=== PATIENT | female | born 1970 | race Caucasian/White ===

== ENCOUNTER 2017-01-18 18:27 | Emergency (ER) | payer BC ==
[2017-01-18] MEDS ORDERED: Butalb/Acetamin/Caff TAB* 1 TAB PO ONE (20:52)
[2017-01-18 21:25] VITALS: BP 121/82
--- NOTE | 2017-01-18 22:12 | ED ---
Xavier Delgadillo Benjamin, scribed for Kinjal Cuenca MD on 01/18/17 at 2006 . GI/ HPI - HPI Summary HPI Summary: 46yo female comes to ED after noticing dark brown blood while using the bathroom this morning. No foul smell was noted. Pt also noted some lump in her external labia. Pt also reported pain in her vaginal area. However, no pain now. Pt had bleeding all throughout the day but pt was able to control her bleeding with just her underwear without needing any extra pads. Pt had full hysterectomy done [address] Del Rela is her PCP, and her Herd Tester retired and she currently does not have a It Systems Manager Doctor. Denies any CP or fever. Pt has chronic migraine. Also Hx of laparoscopy and LEEP.Fhx of Brain tumor, Uterine, ovarian, breast, endometrium, kidney, and lung Alan. Med list: Topamax, Fioricet, Pantoprazole, Meloxicam. Allergic to: Zomig, Imitrex - History of Current Complaint Chief Complaint: EDVaginalBleeding Stated Complaint: VAGINAL BLEEDING Hx Obtained From: Patient, Family/Puppet Master - Onset/Duration: Started Hours Ago - this morning, Atraumatic, Still Present Timing: Constant Severity: Mild Current Severity: Mild Vaginal Bleeding Description: Brownish-Red, Brown Number of Pads per Day: 0 Number of Pads per Hour: 0 Pain Intensity: 0 Location of Pain: Other - labia, vaginal Pain Characteristics: Dull Associated Signs and Symptoms: Negative: Back Pain, Nausea, Vomiting, Fever, Chest Pain Additional Signs & Symptoms: Positive: Vaginal Bleeding - dark, Other: - "cyst" on labia Aggravating Factor(s): Nothing Alleviating Factor(s): Nothing - Allergy/Home Medications Allergies/Adverse Reactions: Allergies Allergy/AdvReac Type Severity Reaction Status Date / Time Sumatriptan [From Imitrex] Allergy Swelling Verified 01/18/17 18:35 Of Face,Lips,& Throat Zolmitriptan [From Zomig] Allergy Swelling Verified 01/18/17 18:36 Of Face,Lips,& Throat PMH/Surg Hx/FS Hx/Imm Hx Previously Healthy: No History: Reports: Other Problems/Disorders - Hysterectomy in her 30's for fibroids Neurological History: Reports: Hx Migraine - Surgical History Surgery Procedure, Year, and Place: total hysterectomy in her 30's Infectious Disease History: No Infectious Disease History: Denies: Traveled Outside the [place] in Last 30 Days - Family History Known Family History: Positive: Other - Brain tumor, Uterine, ovarian, breast, endometrium, kidney, and lungs - Social History Occupation: Employed Full-time Lives: With Family Alcohol Use: None Substance Use Type: Reports: None Smoking Status (MU): Never Smoked Tobacco Review of Systems Constitutional: Negative Negative: Fever Eyes: Negative ENT: Negative Negative: Chest Pain Respiratory: Negative Negative: Diarrhea, Nausea Positive: other - dark brown vaginal bleeding Musculoskeletal: Negative Skin: Negative Neurological: Negative Psychological: Normal All Other Systems Reviewed And Are Negative: Yes Physical Exam Triage Information Reviewed: Yes Vital Signs On Initial Exam: Initial Vitals Temp Pulse Resp BP Pulse Ox 97.6 F 76 16 154/95 98 01/18/17 18:31 01/18/17 18:31 01/18/17 18:31 01/18/17 18:31 01/18/17 18:31 Vital Signs Reviewed: Yes Appearance: Positive: Well-Appearing, Well-Nourished, Pain Distress - mild. Negative: No Pain Distress Skin: Positive: Warm, Skin Color Reflects Adequate Perfusion Head/Face: Positive: Normal Head/Face Inspection Eyes: Positive: Conjunctiva Clear ENT: Positive: Normal ENT inspection Neck: Positive: Supple Respiratory/Lung Sounds: Positive: Clear to Auscultation, Breath Sounds Present Cardiovascular: Positive: RRR, Pulses are Symmetrical in both Upper and Lower Extremities Abdomen Description: Positive: Nontender, No Organomegaly, Soft, Other: - Pelvic exam: right proximal labia with 1cm x 0.5cm purplish lesion. No "head" on the lesion, no drainage site noted. No bleeding or pus from the lesion even with external pressure. Lesion is higher than a classic Bartholin's cyst. Lesion is not painful when I touch it. No vaginal bleeding. Speculum exam shows not blood in vaginal, small amount white discharge sent for culture. Surgically absent cervix. Vaginal mucosa shows no sign of trauma, is pink and moist. No other lesions noted on vulvae. No blisters. No masses. Bowel Sounds: Positive: Present Musculoskeletal: Positive: Strength/ROM Intact. Negative: Edema Left, Edema Right Neurological: Positive: Sensory/Motor Intact, Alert, Oriented to Person Place, Time Psychiatric: Positive: Affect/Mood Appropriate Diagnostics - Vital Signs Vital Signs Temp Pulse Resp BP Pulse Ox 01/18/17 18:31 97.6 F 76 16 154/95 98 - Laboratory Lab Statement: Any lab studies that have been ordered have been reviewed, and results considered in the medical decision making process. Re-Evaluation - Re-Evaluation First Eval Re-Evaluation Time: 20:51 Comment: Informed pt with the diagnosis and the discharge plans. Pt reports migraine like LEON in 8/10 pain scale. Will give pt pain meds before discharge. GIGU Course/Dx - Course Course Of Treatment: Reviewed pts medication and allergy lists. High Blood pressure noted. - Diagnoses Differential Diagnoses - Female: Bartholin Cyst, Cancer, Herpes, STD, Vaginitis Provider Diagnoses: Labial lesion Discharge - Discharge Plan Condition: Stable Disposition: HOME Patient Education Materials: Vaginal Discharge (ED) Referrals: Ousmane Obrien MD [Medical Doctor] - As Soon As Possible (for follow up of bleeding labial lesion ) Yuridia Del Real DO [Primary Care Provider] - Additional Instructions: We have provided instructions about vaginal discharge tonight, although we realize that the bleeding/dark discharge that you had today was from your labia. We have sent cultures to test for infection. We will notify you if you need further treatment based on those results. The spot that was bleeding had decreased in size and there was no blood or pus from the spot when Dr. Cuenca pushed on it. Dr. Cuenca recommends definite follow up with [facility], as soon as possible. Return to the ED if you have any new or worsening symptoms. The documentation as recorded by the Xavier kaiser Benjamin accurately reflects the service I personally performed and the decisions made by , Kinjal Cuenca MD.
[2017-01-19 12:38] LABS: Trichomonas Source Endocervical (Negative)
--- NOTE | 2017-01-21 09:59 | PN ---
Progress Note - Progress Note Date of Service: 01/18/17 Note: negative mikael and trich. vaginal culture results obtained and are positive for gardnerella. complaint was vaginal bleeding at visit. was not treated at d/c. attempted to call both home and cell number, left message, at 9:15am without answer. will send script for treatment to pharmacy and send letter home informing patient, unless she calls back. will treat with flagyl. no further action required.
--- NOTE | 2017-01-21 13:53 | PN ---
Progress Note - Progress Note Date of Service: 01/18/17 Note: patient returned phone call at 1:53pm. discussed results. patient will be treated with flagyl. aware of worsening signs and symptoms and how to use. follow up. no further action required at this time.
== END 2017-01-18 21:25 | disposition home or self-care (01) ==
LOC: ED 18:27
DX: N90.89 Other specified noninflammatory disorders of vulva and perineum (principal); N93.9 Abnormal uterine and vaginal bleeding, unspecified; Z90.710 Acquired absence of both cervix and uterus; G43.909 Migraine, unspecified, not intractable, without status migrainosus; Z88.8 Allergy status to other drugs, medicaments and biological substances
CPT/HCPCS: 87480; 87491; 87510; 87591; 87660; 87661; 99282; A9270-GY

== ENCOUNTER 2021-11-13 08:53 | Inpatient (IN) ==
[2021-11-13] MEDS ORDERED: Iodixanol (CONTRAST) 320 MG/ML 100 ML SDV IV ONE (09:13)
[2021-11-13 10:54] LABS: ABS Eosinophils 0.1 10^3/ul (0-0.6); ABS Lymphocytes 1.5 10^3/ul (1.0-4.8); ABS Monocytes 0.6 10^3/ul (0-0.8); ABS Neutrophils 2.3 10^3/ul (1.5-7.7); Eosinophil % 2.6 %; Hematocrit 37 % (35-47); Hemoglobin 12.3 g/dL (12.0-16.0); Lymphocyte % 32.4 %; Mean Corpuscular HGB Conc 33 g/dL (31-36); Mean Corpuscular Hemoglobin 27 pg (27-31); Mean Corpuscular Volume 82 fL (80-97); Mean Platelet Volume 7.3 fL (7.4-10.4); Nucleated Red Blood Cells % 0.1; Platelet Count 258 10^3/uL (150-450); Red Blood Count 4.56 10^6 /uL (3.70-4.87); Red Cell Distribution Width 15 % (10-15); White Blood Count 4.6 10^3/uL (3.5-10.8)
[2021-11-13 11:12] LABS: Activated Partial Thrombo Time 27.3 seconds (26.0-38.0)
[2021-11-13 11:54] LABS: TSH Ultra Thyroid Stim Horm 1.26 mcIU/mL (0.34-5.60)
[2021-11-13 12:02] LABS: Vitamin B12 > 1450 pg/mL (180-914)
[2021-11-13 12:13] LABS: ALT 25 U/L (7-52); AST 17 U/L (13-39); Albumin/Globulin Ratio 1.5 (1-3); Alkaline Phosphatase 86 U/L (35-149); Anion Gap 9 mmol/L (2-11); Blood Urea Nitrogen 12 mg/dL (6-24); CO2 Carbon Dioxide 26 mmol/L (22-32); Calcium 9.2 mg/dL (8.6-10.3); Chloride 102 mmol/L (101-111); Cholesterol 156 mg/dL; Globulin 2.7 g/dL (2-4); Glucose 147 mg/dL (70-100); HDL Cholesterol 32.8 mg/dL; LDL Cholesterol 72 mg/dL; Potassium 4.1 mmol/L (3.5-5.0); Sodium 137 mmol/L (135-145); Total Protein 6.7 g/dL (6.4-8.9); Triglycerides 255 mg/dL; eGFR CKD-EPI 106.4 (>60)
[2021-11-13 16:56] VITALS: BP 165/87
[2021-11-13] MEDS ORDERED: Enoxaparin 40 MG/0.4 ML SYR SUBCUT SCH (21:00)
[2021-11-14] MEDS ORDERED: DULoxetine DR 60 mg CAP PO SCH (09:00)
== END 2021-11-13 15:51 | disposition home or self-care (01) | DRG 48 ==
LOC: ED 08:53 → EDHOLD 11:45
PROVIDERS: ADMIT Internal Medicine; ATTEND Internal Medicine